=== PATIENT | female | born 1990 | race Caucasian/White ===

== ENCOUNTER 2018-09-02 14:28 | Emergency (ER) | payer OTHER ==
[~2018-09-02] VITALS: Ht 162.6 cm; Wt 108.0 kg
[2018-09-02 14:32] VITALS: BP 159/106
[2018-09-02] MEDS ORDERED: LIDOcaine 5% patch TP STA (15:03)
[2018-09-02] MEDS ORDERED: ibuprofen tablet 400 MG TABLET PO ONE (15:05)
== END 2018-09-02 15:20 | disposition home or self-care (01) ==
LOC: ER 14:28
DX: S16.1XXA Strain of muscle, fascia and tendon at neck level, initial encounter (principal); M25.511 Pain in right shoulder; V49.88XA Car occupant (driver) (passenger) injured in other specified transport accidents, initial encounter; Y93.89 Activity, other specified; Y92.413 State road as the place of occurrence of the external cause; Y99.9 Unspecified external cause status
CPT/HCPCS: 72040; 99283